=== PATIENT | male | born 1945 | race Asian ===

== ENCOUNTER 2023-10-01 22:06 | Emergency (ER) | payer OTHER ==
[~2023-10-01] VITALS: Ht 165.1 cm; Wt 68.0 kg
[2023-10-01 22:08] VITALS: BP_SYST 167; PULSE 83; RESP 18; TEMP 97.9; O2SAT 99
[2023-10-01] MEDS ORDERED: LORA-259 (23:46)
[2023-10-01] MEDS ORDERED: RISP1TAB98 PO (23:46)
[2023-10-01] MEDS ORDERED: DONE10TA44 PO (23:46)
[2023-10-02 00:26] LABS: BASOPHILS # (AUTO) 0.1 K/uL (0.0-0.2); BASOPHILS % (AUTO) 0.9 % (0.0-2.0); EOSINOPHILS # (AUTO) 0.1 K/uL (0.0-0.4); EOSINOPHILS % (AUTO) 1.1 % (0.0-4.0); HEMATOCRIT 41.1 % (36-54); HEMOGLOBIN 13.8 g/dL (14.0-18.0); LYMPHOCYTES # (AUTO) 2.1 K/uL (1.0-5.5); LYMPHOCYTES % (AUTO) 25.9 % (20.5-51.5); MEAN CORPUSCULAR HEMOGLOBIN 31 pg (27-31); MEAN CORPUSCULAR HGB CONC 34 % (32-36); MEAN CORPUSCULAR VOLUME 93 fL (79.0-98.0); MONOCYTES # (AUTO) 1.1 K/uL (0.0-1.0); MONOCYTES % (AUTO) 12.9 % (1.7-9.3); NEUTROPHILS # (AUTO) 4.9 K/uL (1.8-7.7); NEUTROPHILS % (AUTO) 59.2 % (40.0-70.0); PLATELET COUNT (AUTO) 156 K/uL (130-430); RED CELL DISTRIBUTION WIDTH 14.5 % (9.0-15.0); WHITE BLOOD COUNT (AUTO) 8.2 K/uL (4.8-10.8)
[2023-10-02 01:34] LABS: ANION GAP 6 (5-15); CARBON DIOXIDE 29 mmol/L (23-29); CHLORIDE 107 mmol/L (98-107); CREATININE 0.95 mg/dL (0.55-1.30); GLUCOSE 97 mg/dL (74-106); POTASSIUM 3.9 mmol/L (3.5-5.1); SODIUM SERUM 142 mmol/L (136-145); UREA NITROGEN, BLOOD 28 mg/dL (8-21)
[2023-10-02 01:40] LABS: ALANINE AMINOTRANSFERASE 18 U/L (12-78); ALBUMIN 3.5 g/dL (3.4-4.8); ASPARTATE AMINOTRANSFERASE 25 U/L (10-37); TOTAL BILIRUBIN 1.2 mg/dL (0.0-1.0); TOTAL PROTEIN, SERUM 7.2 g/dL (6.4-8.3)
[2023-10-02 10:07] VITALS: BP_SYST 141; PULSE 80; RESP 16; TEMP 97.1; O2SAT 98
== END 2023-10-02 09:01 | disposition home or self-care (01) ==
LOC: SED 22:06
DX: R41.82 Altered mental status, unspecified (principal); Z88.0 Allergy status to penicillin; Z79.899 Other long term (current) drug therapy
CPT/HCPCS: 36415; 70450-TC; 71045; 80053; 82948; 84484; 85025; 93005; 99285